=== PATIENT | female | born 1980 | race Asian ===

== ENCOUNTER 2024-02-20 10:27 | Emergency (ER) | payer BC, SELFPAY ==
[2024-02-20 10:35] VITALS: BP 219/134
[2024-02-20 11:11] VITALS: BP 188/125
[2024-02-20 11:31] LABS: % Eosinophils 2.3 % (0-6); % Immature Granulocytes 0.3 % (0-0.5); % Lymphocytes 33.9 % (20.5-51.1); % Monocytes 6.1 % (1.7-9.3); % Neutrophils 56.4 % (42.2-75.2); Absolute Basophils 0.1 10^3/uL (0-0.2); Absolute Eosinophils 0.1 10^3/uL (0-0.7); Absolute Lymphocytes 2.1 10^3/uL (1.2-3.4); Absolute Monocytes 0.4 10^3/uL (0.1-0.6); Absolute Neutrophils 3.4 10^3/uL (1.4-6.5); Hematocrit 39.5 % (37.0-47.0); Hemoglobin 13.2 g/dL (12.0-16.0); Mean Corp Hgb Conc. 33.4 g/dL (33.0-37.0); Mean Corpuscular Hgb 24.7 pg (27.0-31.0); Nucleated Red Blood Cells % 0 %; Platelet Count 255 10^3/uL (130-400); Red Blood Cell Count 5.34 10^6/uL (4.20-5.40); Red Cell Dist. Width 13.2 % (11.5-14.5); White Blood Cell Count 6.1 10^3/uL (4.8-10.8)
[2024-02-20 11:48] LABS: ALT (SGPT) 29 U/L (0-35); AST (SGOT) 27 U/L (14-36); Albumin 4.7 g/dl (3.5-5.0); Alkaline Phosphatase 47 U/L (38-126); Blood Urea Nitrogen 11 mg/dl (7-17); Calcium 9.8 mg/dl (8.4-10.2); Carbon Dioxide 25 mmol/L (22-30); Chloride 102 mmol/L (98-107); Glucose 91 mg/dl (70-99); Magnesium 1.9 mg/dl (1.6-2.3); Potassium 4.1 mmol/L (3.5-5.1); Sodium 136 mmol/L (135-145); Total Bilirubin 1.3 mg/dl (0.2-1.3); Total Protein 7.7 g/dl (6.3-8.2); eGFR > 60.00
--- NOTE | 2024-02-20 12:00 | ED.GENMED ---
History of Present Illness
General
Chief Complaint: Blood Pressure Problem
Source: patient
Time Seen by Provider: 02/20/24 11:42
History of Present Illness
History of Present Illness:
43-year-old female presents to the emergency room after being referred here by her CATALYST IMPREGNATOR. Patient go to her CATALYST IMPREGNATOR for her routine yearly visit. While there they noted an elevated blood pressure. She does not know what the actual measurement was
but they referred her to the emergency room. Patient states has been experiencing headache and blurred vision from time to time. The headache is not severe. She denies any focal weakness numbness or tingling. She denies any chest pain or
shortness of breath. Patient is not prescribed any medication for blood pressure. She does have a significant family history of elevated blood pressure however. Her family history is so significant that she made an appointment with a captain/check airman
a couple years ago just to establish a relationship with someone knowing that she would likely have issues. Patient states she did take this medication while in 2019.
Phy Exam
Physical Exam
Physical Exam:
General: Awake, Alert, Oriented X3. No acute distress.
Vitals: Uncontrolled hypertension
Head: Atraumatic
Eyes: Pupils equal, EOMI
Throat: Airway intact, no exudates
Neck: Trachea midline
Lungs: Clear and equal b/l
Heart: Regular rate, no murmurs
Abd: Soft, Nontender, No pulsatile mass
Neuro: Cranial nerves intact, muscle strength equal bilaterally
Skin: Warm, dry, no rash
Extremities: pulses equal b/l, no edema
Course
Orders/Labs/Results
Orders:
Orders
02/20/24 10:41
Electrocardiogram (*1) Urgent
Reason for Study: Hypertension, Benign
EKG- Treatment ONCE
02/20/24 11:17
CMP [Comprehensive Metabolic Panel] Urgent
Complete Blood Count/With Diff Urgent
Magnesium Urgent
Troponin I Urgent
Abnormal Lab Results
02/20/24
11:17
MCV 74.0 L fL
(81.0-99.0)
MCH 24.7 L pg
(27.0-31.0)
02/20/24 11:17
02/20/24 11:17
Vital Signs
Initial and Last Documented VS:
Initial Vital Signs
Temp Pulse Resp BP Pulse Ox
98.1 F 76 18 219/134 100
02/20/24 10:35 02/20/24 10:35 02/20/24 10:35 02/20/24 10:35 02/20/24 10:35
Last Documented Vital Signs
Temp Pulse Resp BP Pulse Ox
98.1 F 74 18 178/98 99
02/20/24 10:35 02/20/24 11:11 02/20/24 11:11 02/20/24 12:29 02/20/24 11:11
MDM/Problems Addressed
Differential Diagnosis Includes:
Uncontrolled hypertension, hypertensive emergency
MDM/Problems Addressed:
Patient presents with what is essentially asymptomatic hypertension. She denies chest pain, shortness of breath. She has no focal neurologic deficits. Renal functions normal on labs. Patient has a established relationship with Dr. Membreno for
cardiology. I communicated with Dr. Lyons who is on-call for the group. He recommends starting Norvasc 2.5 mg.
*Pulse Oximetry
Patient hypoxic: no
*EKG
Interpreted by ED Provider?: Yes
Interpretation: normal
Heart Rate: 65
Rate: normal
Rhythm: sinus
[place]: normal axis
Interval: normal interval
QRS Pattern: normal QRS
Ischemia: no ischemia
*Fishing Tackle Repairer Interpretation
Rate: normal
Interpretation: normal
Rhythm: sinus
*Critical Care Note
Total Time (30-74mins, 75-104mins- exclusive of procedures): Not Applicable
ED Attending Note
-
Portions of this chart may have been created with voice recognition software.� Occasional wrong word or��sound alike� substitutions may have occurred due to the inherent limitations of voice recognition software.
Discharge Plan
Departure
Patient Disposition: Home (Routine Discharge)
Date of Disposition: 02/20/24
Time of Disposition: 12:19
Patient with high blood pressure during this ER visit?: Yes
Condition: Good
Discharge Problem:
Uncontrolled hypertension
Instructions: High Blood Pressure (DC)
Prescriptions:
New
amlodipine [Norvasc] 2.5 mg tablet
2.5 mg PO DAILY Qty: 30 0RF
No Action
[id number] fum-folic 1 EACH tablet
1 ea PO DAILY
oxycodone-acetaminophen 5 MG/325 MG tablet
1 tab PO Q4HPRN PRN (Reason: moderate pain) Qty: 15 0RF
ibuprofen 600 MG tablet
600 mg PO Q4HPRN PRN (Reason: cramps) 0RF
nifedipine 30 MG tablet extended release
30 mg PO BID Qty: 60 0RF
Interventions
Interventions:
*Risk Screen - Suicide Last Done: 02/20/24 11:26
*General Assessment Last Done: 02/20/24 11:26
*Neglect/Abuse Screening Last Done: 02/20/24 11:26
ED- Fall Risk Assessment Last Done: 02/20/24 11:26
ED- Cardiac Assessment Last Done: 02/20/24 11:26
ED- Neurological Assessment Last Done: 02/20/24 11:26
ED- Pulmonary Assessment Last Done: 02/20/24 11:26
Discharge Date and Time
Print Language: IVORIAN
[2024-02-20 12:16] LABS: Troponin I < 0.012 ng/ml
[2024-02-20 12:29] VITALS: BP 178/98
== END 2024-02-20 13:32 | disposition home or self-care (01) ==
LOC: EMR 10:27
PROVIDERS: EMERGENCY PHYSICIAN Emergency Medicine
DX: I10 Essential (primary) hypertension (principal); R51.9 Headache, unspecified; H53.8 Other visual disturbances
CPT/HCPCS: 99283; 80053; 83735; 84484; 85025; 93005

== ENCOUNTER → 2024-04-10 12:47 | Outpatient (REF) | payer BC, SELFPAY | LOC: RCS 12:47 | PROVIDERS: ATTENDING PHYSICIAN Physician Assistant; FAMILY PHYSICIAN Nurse Practitioner Family | DX: I10 Essential (primary) hypertension (principal) | CPT/HCPCS: 93306 ==

== ENCOUNTER 2024-05-03 06:45 | Inpatient (IN) | payer BC, SELFPAY ==
[2024-05-03] VITALS (15 sets, daily range): BP systolic 119–169; BP diastolic 77–105
--- NOTE | 2024-05-03 04:06 | ED.GENMED ---
History of Present Illness
General
Chief Complaint: Abdominal Pain
Source: patient
Exam Limitations: none
Time Seen by Provider: 05/03/24 03:58
Nursing documentation reviewed up to this point in time: agreed with
History of Present Illness
History of Present Illness:
43-year-old female presents emergency room complaining of right upper quadrant abdominal pain radiating to her back. She is nauseous, but no vomiting or diarrhea. Symptoms began 4 hours ago.
Past History
Past History
ED Past Medical History: HTN
ED Past Surgical History: and Other (LEEP)
Social History
Tobacco: Non-smoker
Alcohol: None
Drug: None
Living: with family
Review of Systems
Review of Systems
Allergies reviewed?: Yes
All Other Systems: Not applicable
Constitutional: Reports no symptoms
EENT: Reports no symptoms
Respiratory: Reports no symptoms
Cardiac: Reports no symptoms
ABD/GI: Reports abdominal pain and nausea
: Reports no symptoms
Musculoskeletal: Reports no symptoms
Skin: Reports no symptoms
Neurological: Reports no symptoms
Endocrine: Reports no symptoms
Hematologic/Lymphatic: Reports no symptoms
Psychiatric: Reports no symptoms
Phy Exam
Physical Exam
Physical Exam:
Physical Exam
General: Afebrile, appears uncomfortable
Neck: supple. no meningeal signs. normal posterior pharynx
Heart: s1/s2 regular rate and rhythm, no murmur. equal radial
pulses.
HEENT: Pupils equal round reactive to light, EOMI
Lungs: no acute respiratory distress. clear bilaterally
Abdomen: normal bowel sounds. Right upper quadrant tenderness. No CVAT
Neuro: alert and oriented. no focal neurological deficits
Skin: no rash
Psychiatric: well kept. interactive and cooperative
Extremities: no edema. no calf tenderness. negative homans. good distal pulses
Course
Orders/Labs/Results
Orders:
Orders
05/03/24 03:34
Test Result ONCE
05/03/24 03:51
Complete Blood Count/With Diff Urgent
Comprehensive Metabolic Panel Urgent
HCG, Serum Qualitative Screen Urgent
Lipase Urgent
05/03/24 04:05
Morphine Sulfate 4 mg IV NOW STA
Ondansetron Injectable [Zofran] 4 mg IV NOW STA
US Abdomen Complete/Upper Urgent
Comment:
Reason For Exam: RUQ pain, n/v 4 hours
05/03/24 05:09
HYDROmorphone [Dilaudid] 1 mg .ROUTE .STK-MED ONE
05/03/24 05:11
HYDROmorphone [Dilaudid] 1 mg IV NOW STA
05/03/24 05:45
0.9% Sodium Chloride 1000 ml [Nss] 1,000 ml IV 125 mls/hr
Abnormal Lab Results
05/03/24
03:51
Hgb 11.9 L g/dL
(12.0-16.0)
Hct 34.9 L %
(37.0-47.0)
MCV 70.5 L fL
(81.0-99.0)
MCH 24.0 L pg
(27.0-31.0)
Absolute Neuts (auto) 7.2 H 10^3/uL
(1.4-6.5)
Lymphocytes % 18.0 L %
(20.5-51.1)
Glucose 135 H mg/dl
(70-99)
Alkaline Phosphatase 33 L U/L
(38-126)
05/03/24 03:51
05/03/24 03:51
Vital Signs
Initial and Last Documented VS:
Initial Vital Signs
Temp Pulse Resp BP Pulse Ox
98.2 F 69 22 169/77 100
05/03/24 03:25 05/03/24 03:25 05/03/24 03:25 05/03/24 03:25 05/03/24 03:25
Last Documented Vital Signs
Temp Pulse Resp BP Pulse Ox
98.2 F 68 20 132/88 99
05/03/24 03:25 05/03/24 05:07 05/03/24 05:07 05/03/24 05:07 05/03/24 05:07
MDM/Problems Addressed
Differential Diagnosis Includes:
Diverticulitis, cholecystitis, pancreatitis
MDM/Problems Addressed:
43-year-old female with acute cholecystitis. Admit to general surgery. IV fluids, NPO. General surgery request to hold antibiotics at this time.
Chronic conditions affecting care: HTN
*Radiology
Radiology exam reviewed: radiology read reviewed (Ultrasound shows distended gallbladder, positive Padilla sign)
*Pulse Oximetry
Patient hypoxic: no
*Critical Care Note
Total Time (30-74mins, 75-104mins- exclusive of procedures): Not Applicable
Data Reviewed
Prescriptions/Medications Considered But Not Given:
Antibiotics considered, but general surgery request to wait
Patient Management
Social determinants of health affecting care: Living situation
Discussion with other providers: Barrel Rifler Operator (General Surgery)
Escalation/DeEscalation of care consider admission/obs:
Admit indicated
ED Attending Note
-
Portions of this chart may have been created with voice recognition software.� Occasional wrong word or��sound alike� substitutions may have occurred due to the inherent limitations of voice recognition software.
Discharge Plan
Departure
Patient Disposition: Admit
Date of Disposition: 05/03/24
Time of Disposition: 05:35
Admit to: Med/Surg
Presentation/result/management discussed w/ accepting MD/DO: sanket Heath
Patient with high blood pressure during this ER visit?: Yes
Condition: Good
Discharge Problem:
Acute cholecystitis
Prescriptions:
No Action
Zepbound
5 mg SC DAILY
amlodipine
10 mg PO DAILY
lisinopril
10 mg PO DAILY
Interventions
Interventions:
*Risk Screen - Suicide Last Done: 05/03/24 03:25
*General Assessment Last Done: 05/03/24 03:29
*Neglect/Abuse Screening Last Done: 05/03/24 03:28
ED- Fall Risk Assessment Last Done: 05/03/24 04:28
*ED COVID-19 Vaccine History Last Done: 05/03/24 03:28
ZR-Wdhfre-Amtptcjget Assessment Last Done: 05/03/24 04:28
Discharge Date and Time
Print Language: BULGARIAN
[2024-05-03 04:11] LABS: HCG, Serum Qualitative Screen Negative
[2024-05-03] MEDS: MORPHINE SULFATE 4 MG IV (04:15)
[2024-05-03] MEDS: ZOFRAN 4 MG IV (04:16)
[2024-05-03 04:17] LABS: ALT (SGPT) 23 U/L (0-35); AST (SGOT) 28 U/L (14-36); Albumin 4.9 g/dl (3.5-5.0); Alkaline Phosphatase 33 U/L (38-126); Blood Urea Nitrogen 17 mg/dl (7-17); Calcium 9.6 mg/dl (8.4-10.2); Carbon Dioxide 22 mmol/L (22-30); Chloride 104 mmol/L (98-107); Glucose 135 mg/dl (70-99); Lipase 202 U/L (23-300); Potassium 3.8 mmol/L (3.5-5.1); Sodium 140 mmol/L (135-145); Total Bilirubin 0.8 mg/dl (0.2-1.3); Total Protein 7.8 g/dl (6.3-8.2); eGFR > 60.00
[2024-05-03 04:27] LABS: % Basophils 0.5 % (0-2); % Eosinophils 1.5 % (0-6); % Immature Granulocytes 0.3 % (0-0.5); % Monocytes 4.7 % (1.7-9.3); Absolute Basophils 0.1 10^3/uL (0-0.2); Absolute Eosinophils 0.1 10^3/uL (0-0.7); Absolute Lymphocytes 1.7 10^3/uL (1.2-3.4); Absolute Monocytes 0.5 10^3/uL (0.1-0.6); Absolute Neutrophils 7.2 10^3/uL (1.4-6.5); Hematocrit 34.9 % (37.0-47.0); Hemoglobin 11.9 g/dL (12.0-16.0); Mean Corp Hgb Conc. 34.1 g/dL (33.0-37.0); Mean Corpuscular Volume 70.5 fL (81.0-99.0); Nucleated Red Blood Cells % 0 %; Red Blood Cell Count 4.95 10^6/uL (4.20-5.40); Red Cell Dist. Width 12.9 % (11.5-14.5); White Blood Cell Count 9.6 10^3/uL (4.8-10.8)
[2024-05-03] MEDS: DILAUDID 1 MG IV (05:12)
[2024-05-03] MEDS: NSS 1000 IV (06:25)
--- NOTE | 2024-05-03 06:28 | HPS.HSE ---
Addendum entered and electronically signed by Ezra Parra MD 05/03/24 11:45:
43-year-old female with PMH of HTN who presents with epigastric to RUQ abdominal pain starting at midnight this morning. She had similar pain 10+ years ago for which she presented to an ED. After workup, they sent her home without a diagnosis.
The pain has not improved despite some pain medication. It is associated with some nausea, but no vomiting. She denies chest pain, shortness of breath or urinary symptoms. In the ED, her WBC was 9.6, T. bili 0.8, LFTs 28/23, Cr 0.8, platelets 1K
and RUQ U/IS's showed gallstones, distended gallbladder, likely pericholecystic fluid, normal gwt, CBD 4mm.
AFVSS, ABD soft, nondistended, moderately tender in the RUQ, positive Padilla sign, no rebound or guarding
�Thrombocytopenia with clumping; discussed with Dr. Hugo from Hematology; he took a look at the peripheral smear and estimated her true platelet count to be about 200,000
�Acute cholecystitis without evidence of biliary obstruction
-Explained the treatment options including antibiotics alone (ie- elevated failure rate and recurrence rate) versus surgery; explained the risks and benefits to surgery; patient elected to proceed with surgery
�Continue n.p.o. with IVF
�Follow-up coags and type and screen
�Pain control with Toradol and Dilaudid as needed
� IV cefotetan 2 g twice daily until surgery
� Okay for DVT PPx if staying overnight; otherwise OOB/IS
Original Note:
Family Physician
-
Family Physician: Erika Dooley NP
Chief Complaint
-
'abdomen pain'
History of Present Illness
43 y/o patient presents with the c/o abdomen pain started after MN. States pain as 'twisted' at epigastrium radiating towards the Right side of the abdomen and right side of the back. Pain is associated with some chills and nausea. Denies vomiting,
fever, diarrhea or constipation, Denies eating any fatty food prior, Denies chest pain or shortness of breath. LBM 11, voiding without difficulty, no blood noted.
Medical History
Past Medical History
Past Medical History: Reports HTN and Other (HPV)
Past Surgical History: Reports Gynocological ( x 3 )
Additional Past Surgical History:
LEEP surgery
Social History
Tobacco: Non-smoker
Alcohol: Occasional
Drug: None
Living: With Family
Family History
Family History: Not pertinent
Allergies / Home Medications
Allergies reflects when Allergies were last updated in [employer].
Home Medications with original date entered in [employer]
Allergy/Medication List:
Allergies
Allergy/AdvReac Type Severity Reaction Status Date / Time
No Known Allergies Allergy Verified 05/03/24 03:25
Home Medications
Zepbound 5 mg SC DAILY 05/03/24
amlodipine 10 mg PO DAILY 05/03/24
lisinopril 10 mg PO DAILY 05/03/24
Review of Systems
-
History Source: Patient
A 12 point ROS was completed and negative except as noted: Yes
Constitutional: Reports No Symptoms
EENT: Reports No Symptoms
Respiratory: Reports No Symptoms
Cardiac: Reports No Symptoms
Abdomen/GI: Reports Abdominal Pain and Nausea
: Reports Flank Pain
Musculoskeletal: Reports No Symptoms
Skin: Reports No Symptoms
Neurological: Reports No Symptoms
Endocrine: Reports No Symptoms
Hematologic/Lymphatic: Reports No Symptoms
Psych: Reports No Symptoms
Physical Exam
Vital Signs
Vital Signs
Temp Pulse Resp BP Pulse Ox
98.2 F 68 20 132/88 99
05/03/24 03:25 05/03/24 05:07 05/03/24 05:07 05/03/24 05:07 05/03/24 05:07
Physical Exam
General: Well Developed, Well Nourished and No Apparent Distress
HEENT: NormoCephalic, Moist mucous membranes and Atraumatic
Respiratory: Clear and Non Labored Respirations
Cardiac: S1/S2 and Regular Rhythm
Breast: Deferred by me
GI: Soft, Non Distended, Normal Bowel Sounds (hypoactive ) and Tender (RUQ, more tender with deep breath)
Rectal: Deferred by Provider
Genito-urinary: No costovertebral tender
Musculoskeletal: No Clubbing, No Cyanosis and No Edema
Skin: Warm and Dry
Neuro: Awake, AO x 3 and Nonfocal/grossly intact
Hematologic/Lymphatic: No Lymphadenopathy
Psych: Calm and Intact Judgment/Insight
Laboratory Results
-
05/03/24 03:51
05/03/24 03:51
Laboratory Results
Total Bilirubin 0.8 mg/dl (0.2-1.3) 05/03/24 03:51
AST 28 U/L (14-36) 05/03/24 03:51
ALT 23 U/L (0-35) 05/03/24 03:51
Alkaline Phosphatase 33 U/L (38-126) L 05/03/24 03:51
Lipase 202 U/L (23-300) 05/03/24 03:51
Data Reviewed
-
Ultrasound: Report Reviewed by me
Lab Data: Labs Reviewed by me
Impression/Plan
-
43 y/o patient presents to ER with Abdomen pain
# Abdomen pain likely due to Acute cholecystis
-US abdomen: Numerous stone admixed with sludge in the gallbladder
Gallbladder is distended measuring 11.5x3.7cm
Positive sonographic padilla's sign per report
In the appropriate clinical context findings could signify early acute cholecystitis
- Afebrile
-WBC 9.6
-Continue IVF
-NPO
-No antibiotics per surgery at present
-Admit to Dr. Parra
# Essential HTN
-Hydralazine 5 mg IV prn > 160
-Hold PO medications
Full Code
DVT Prophylaxis: SCD's
[2024-05-03] MEDS: MORPHINE SULFATE 2 MG IV (07:26)
--- NOTE | 2024-05-03 08:41 | PTCARENOTE ---
Received patient from ER via stretcher around 0750 in stable condition. Patient oriented to room. Call chen in reach.
[2024-05-03] MEDS: DILAUDID 0.5 MG IV ×2 (08:54→14:44)
[2024-05-03 09:42] LABS: INR 0.96; PT 12.6 Sec (11.4-14.6)
[2024-05-03 09:43] LABS: APTT 30.2 Sec (23.4-35.0)
[2024-05-03] MEDS: CEFOTAN 2000 MG IV (10:21)
[2024-05-03] MEDS: STERILE WATER FOR INJECTION 10 ML IV (10:22)
--- NOTE | 2024-05-03 13:57 | W.IMMPOSTOP ---
Surgical Immed Post Op Note
-
Primary Surgeon: Ezra Parra MD
Assisting Surgeon: Marcus Tello MD
Pre-op Diagnosis: acute cholecystitis
Post-op Diagnosis: acute cholecystitis
Procedure Performed: laparoscopic cholecystectomy
Anesthesia Type: general
Specimen / Cultures: gallbladder
Estimated Blood Loss: 20mL
Complications: None
Operative Findings: Gallbladder distended, inflamed and edematous; aspirated 50 mL of bile to assist with retracting the gallbladder; no significant adhesions to the omentum; obtain the critical view of safety prior to dividing the cystic duct and
cystic artery; no bile spillage
--- NOTE | 2024-05-03 13:59 | OR.RPT ---
Operative Report
Operative Report
DATE OF OPERATION: 05/03/2024
SURGEON: Ezra Parra MD
PREOPERATIVE DIAGNOSIS: Acute cholecystitis
POSTOPERATIVE DIAGNOSIS: Acute cholecystitis
OPERATION: Laparoscopic cholecystectomy
ASSISTANTS:
1. Marcus Tello MD
ANESTHESIA: General anesthesia
ESTIMATED BLOOD LOSS: 20 mL
FINDINGS:
1. Very distended gallbladder that was inflamed and edematous; aspirated 50 mL of bile to assist with gallbladder retraction; no bile spillage
2. Obtained the critical view of safety prior to ligating the cystic artery and cystic duct
SPECIMENS:
1. Gallbladder
DRAINS: None
COMPLICATIONS: No immediate complications.
INDICATIONS: The patient is a 43-year-old female who presented with 6 hours of epigastric to right upper quadrant abdominal pain. Her WBC was 9.6, her platelets were 1000, and an abdominal ultrasound showed a distended gallbladder with gallstones
and a positive Padilla sign, concerning for acute cholecystitis. On exam, she was quite tender in the right upper quadrant, despite pain medication. Therefore, I recommended a cholecystectomy. I discussed the low platelet count with Dr. Hugo from
hematology, who said there was platelet clumping and her estimated platelet count was about 200,000. Therefore, no contraindication to surgery. The operation was discussed with the patient in detail, including the risks, benefits and alternatives.
Risks described included, but not limited to, bleeding, infection, damage to nearby structures (i.e., common bile duct, liver, bowel), conversion to open, missed injury and anesthetic risks. The patient understood and agreed to proceed. The consent
was signed and placed in the chart.
PROCEDURE IN DETAIL: The patient was taken to the operating room and placed on the operating table in supine position. Sequential compression devices were placed bilaterally. General anesthesia was then induced and the patient was intubated without
complication. The patient was secured to the bed with 1 seatbelt across the thighs and the arms were secured to the armboards. A footboard was placed in case steep reverse Trendelenburg positioning becomes necessary. 2 grams of cefotetan were
given recently on the floor. The abdomen was then prepped and draped in the usual sterile fashion. A time-out was then performed verifying the correct patient, procedure, operative site, positioning, and special equipment.
An 11 blade scalpel was used to create a stab incision at Flowers's point. The Veress needle was carefully inserted. After three clicks, insufflation was attached to the Veress needle and an opening pressure of less than 8 mmHg was noted. The
abdomen was insufflated to a pressure of 15 mmHg. The patient tolerated insufflation well. Next, the 11 blade scalpel was used to create a 5 mm incision along the midline about 15 cm from the target anatomy. Using the 5-0 camera and the Optiview
trocar, the first 5 mm port was placed under direct visualization ensuring no injury to adjacent organs. A 5-30 camera was then connected and inserted, and the abdomen was inspected. No injury from initial trocar placement or Veress needle
placement was noted. The gallbladder was noted to be very distended and inflamed. Additional trocars were then inserted under direct visualization in the following locations: a 12 mm trocar in the right epigastrium just lateral to the falciform
ligament and two 5 mm trocars along the right costal margin in the anterior axillary line and mid-axillary line. The table was placed in reverse Trendelenburg position with the right side up.
A laparoscopic needle was used to aspirate bile from the gallbladder as it was too distended to be grasped. About 50mL of bile was aspirated. The dome of the gallbladder was grasped with a locking atraumatic grasper and retracted over the dome of
the liver. The infundibulum was also grasped with an atraumatic grasper and retracted toward the right lower quadrant to expose the triangle of Calot. The peritoneum was then scored and incised with electrocautery along the medial and lateral
margins of the gallbladder. Using a combination of hook cautery and blunt dissection, the cystic duct and cystic artery were identified and circumferentially dissected. The critical view of safety was achieved. The cystic duct and the cystic
artery were clipped and divided such that 3 clips remained on the cystic duct stump and 2 clips remained on the cystic artery stump.
The gallbladder was then dissected from its peritoneal attachments to the gallbladder fossa by electrocautery. There was noted to be pericholecystic fluid within this plane, consistent with cholecystitis. Prior to complete removal of the
gallbladder, the gallbladder fossa was closely evaluated. No liver injuries were identified and hemostasis was assured using electrocautery. The gallbladder was then placed in an endoscopic retrieval bag through the epigastric port and set to the
side. The gallbladder fossa was then irrigated with saline and suctioned. There was no evidence of bleeding from the gallbladder fossa or cystic artery or leakage of bile from the cystic duct stump. Then, the specimen was removed from the
epigastric port. Due to the size of the inflamed gallbladder, the fascia had to be stretched with a Tatum clamp and slightly enlarged with electrocautery. The gallbladder was passed off as specimen. The fascia of the epigastric port was closed
with an 0 Vicryl figure-of-8 stitch using laparoscopic visualization and a suture passer. The remaining ports were removed under direct vision and no bleeding was noted from the trocar sites. The laparoscope was withdrawn and the umbilical trocar
removed. The abdomen was allowed to collapse. The port sites were injected with 30mL of 0.25% Marcaine with epinephrine mixed with 0.3mg of dexamethasone for local anesthesia. The skin was closed with subcuticular sutures of 4-0 Monocryl and
Dermabond.
At this point, the procedure was complete. All needle, sponge and instrument counts were correct. The patient tolerated the procedure well. The patient was extubated without complication and was transferred to the recovery room in stable condition.
Of note, Marcus Tello MD, bookkeeping assistant, was necessary during this procedure for traction, countertraction, and exploratory purposes. I was present for the entire duration of the case.
DICTATED BY: Ezra Parra MD
--- NOTE | 2024-05-03 14:49 | W.DS.TRANS ---
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
-
Discharge Instructions:
Discharge Diagnosis/Procedures laparoscopic cholecystectomy
Diet Low Fat
Activity No strenuous activity
Additional Activity No lifting over 10lbs (gallon of milk)
Driving Restrictions No driving for 1 week
Bathing Restrictions OK to Shower
Wound Care Allow glue to naturally fall off. Do not pick at
incisions.
Instructions: Cholecystectomy (DC)
Stand-Alone Forms:
Changes to Home Medications: Yes
Discharge Medications:
DC Medications w/original date entered in [employer]
Zepbound 5 mg SC DAILY 05/03/24
amlodipine 10 mg PO DAILY 05/03/24
lisinopril 10 mg PO DAILY 05/03/24
oxycodone 5 mg tablet 5 mg PO Q6H PRN Pain #20 tabs 05/03/24
Home Medication Changes
oxycodone 5 mg tablet 5 mg PO Q6H PRN Pain #20 tabs 05/03/24
Pending Results: Yes
Additional Pending Results:
pathology
[2024-05-03] MEDS: DILAUDID 0.25 MG IV (15:04)
--- NOTE | 2024-05-03 15:07 | CM ---
Pt went to OR for Laparoscopic cholecystectomy.
Pt for discharge after.
[2024-05-03] MEDS: TYLENOL 1000 MG PO (18:22)
[2024-05-03] MEDS: ROXICODONE 5 MG PO (18:23)
--- NOTE | 2024-05-03 19:24 | PTCARENOTE ---
Received patient from PACU around 1600 via bed in stable condition. Patient drowsy but arousable. Abdominal incisions with glue ACO COORDINATOR CDI. Call chen in reach.
== END 2024-05-03 19:51 | disposition home or self-care (01) | DRG 419 ==
LOC: 2 SOUTH 06:45
PROVIDERS: Emergency Medicine; ADMITTING PHYSICIAN Surgery; EMERGENCY PHYSICIAN Emergency Medicine; FAMILY PHYSICIAN Nurse Practitioner Family
PROC: 0FT44ZZ Resection of Gallbladder, Percutaneous Endoscopic Approach (ICD-10-PCS; 2024-05-03)
DX: K81.0 Acute cholecystitis (principal); I10 Essential (primary) hypertension; D69.6 Thrombocytopenia, unspecified; Z79.899 Other long term (current) drug therapy
CPT/HCPCS: 88304; 76700; 80053; 83690; 84703; 85025; 85610; 85730; 86850; 86900; 86901; 96361; 96374; 96375; 96376; 99285

== ENCOUNTER → 2024-05-28 11:52 | Outpatient (REF) | payer BC, SELFPAY ==
[2024-05-28 13:29] LABS: % Basophils 1.1 % (0-2); % Eosinophils 12.8 % (0-6); % Immature Granulocytes 0.2 % (0-0.5); % Lymphocytes 30.8 % (20.5-51.1); % Monocytes 6.8 % (1.7-9.3); % Neutrophils 48.3 % (42.2-75.2); Absolute Basophils 0.1 10^3/uL (0-0.2); Absolute Eosinophils 0.7 10^3/uL (0-0.7); Absolute Lymphocytes 1.7 10^3/uL (1.2-3.4); Absolute Monocytes 0.4 10^3/uL (0.1-0.6); Absolute Neutrophils 2.7 10^3/uL (1.4-6.5); Hematocrit 35.8 % (37.0-47.0); Mean Corp Hgb Conc. 33.5 g/dL (33.0-37.0); Mean Corpuscular Hgb 24.4 pg (27.0-31.0); Mean Corpuscular Volume 72.8 fL (81.0-99.0); Mean Platelet Volume 9.6 fL (7.4-10.4); Nucleated Red Blood Cells % 0 %; Platelet Count 277 10^3/uL (130-400); Red Blood Cell Count 4.92 10^6/uL (4.20-5.40); Red Cell Dist. Width 13.4 % (11.5-14.5); White Blood Cell Count 5.6 10^3/uL (4.8-10.8)
[2024-05-28 13:38] LABS: ALT (SGPT) 36 U/L (0-35); AST (SGOT) 24 U/L (14-36); Albumin 4.4 g/dl (3.5-5.0); Alkaline Phosphatase 45 U/L (38-126); Blood Urea Nitrogen 8 mg/dl (7-17); Carbon Dioxide 24 mmol/L (22-30); Chloride 104 mmol/L (98-107); Glucose 81 mg/dl (70-99); Lipase 185 U/L (23-300); Potassium 4.1 mmol/L (3.5-5.1); Sodium 139 mmol/L (135-145); Total Bilirubin 0.9 mg/dl (0.2-1.3); Total Protein 7.2 g/dl (6.3-8.2); eGFR > 60.00
== END ==
LOC: REG 11:52
PROVIDERS: ATTENDING PHYSICIAN Surgery; FAMILY PHYSICIAN Nurse Practitioner Family
DX: R10.11 Right upper quadrant pain (principal)
CPT/HCPCS: 36415; 80053; 83690; 85025

== ENCOUNTER → 2024-05-30 09:36 | Outpatient (REF) | payer BC, SELFPAY | LOC: HWRAD 09:36 | PROVIDERS: ATTENDING PHYSICIAN Surgery; FAMILY PHYSICIAN Nurse Practitioner Family | DX: R10.11 Right upper quadrant pain (principal) | CPT/HCPCS: 74177; Q9967 ==